=== PATIENT | female | born 1965 | race Caucasian/White ===

== ENCOUNTER 2018-06-13 14:31 | Emergency (ER) | payer OTHER ==
[~2018-06-13] VITALS: Ht 154.9 cm; Wt 88.5 kg
--- NOTE | 2018-06-13 14:31 | NUR ---
Patient MARTINA ALEMAN [place] [facility] [place], triaged at transferred to ED lobby to wait for an available bed.
[2018-06-13 15:09] VITALS: BP 132/76
--- NOTE | 2018-06-13 15:10 | NUR ---
Patient transferred to bed 1. RN evaluating patient at bedside.
--- NOTE | 2018-06-13 15:25 | NUR ---
BIBA FROM SNF FOR CHRONIC RT LOWER LEG PAIN & SWELLING X 1 YEAR. PATIENT STATES PAIN OF 5/10 AT THIS TIME;PATIENT POSITIONED FOR COMFORT; HOB ELEVATED; BEDRAILS UP X2; BED DOWN. ER MD MADE AWARE OF PT STATUS.
[2018-06-13 17:43] LABS: BASOPHILS # (AUTO) 0.1 K/uL (0.00-0.22); BASOPHILS % (AUTO) 0.7 % (0.0-2.0); EOSINOPHILS # (AUTO) 0.3 K/uL (0-0.4); EOSINOPHILS % (AUTO) 3.5 % (0.0-4.0); LYMPHOCYTES % (AUTO) 35.2 % (20.5-51.1); MEAN CORPUSCULAR HEMOGLOBIN 33 pg (27-31); MEAN CORPUSCULAR HGB CONC 34 g/dL (33-37); MONOCYTES # (AUTO) 0.7 K/uL (0.8-1.0); NEUTROPHILS # (AUTO) 4.4 K/uL (1.8-7.7); NEUTROPHILS % (AUTO) 52.6 % (42.2-75.2); PLATELET COUNT (AUTO) 211 K/uL (140-450); RED BLOOD CELL COUNT(AUTO) 4.27 MIL/uL (4.20-5.40); WHITE BLOOD COUNT (AUTO) 8.4 K/uL (4.8-10.8)
[2018-06-13] MEDS ORDERED: fentaNYL 0.05 MG/ML VIAL IM ONE (17:45)
[2018-06-13 17:56] LABS: ANION GAP 10.4 (8-16); CARBON DIOXIDE 31.6 mmol/L (21-32); CREATININE 0.7 mg/dL (0.6-1.3)
[2018-06-13 18:04] LABS: ALBUMIN 3.3 g/dL (3.4-5.0); TOTAL BILIRUBIN 0.3 mg/dL (0.0-1.0)
--- NOTE | 2018-06-13 19:14 | NUR ---
GAVE REPORT TO TIA RN ; [facility].
--- NOTE | 2018-06-13 19:26 | NUR ---
Pt report given to FARNAZ BYRNE. Transfer of care at this time.
--- NOTE | 2018-06-13 19:30 | NUR ---
ASSUMED CARE OF PT AT THIS TIME, PT LAYING IN BED RESTING, NO NEW NEEDS AT THIS TIME, PT AWAITS TRANSPORT TO FACILITY.
--- NOTE | 2018-06-13 20:34 | NUR ---
[facility] AT BEDSIDE
[2018-06-13 20:35] VITALS: BP 132/75
--- NOTE | 2018-06-13 20:38 | NUR ---
[facility] TO WHEELCHAIR TRANSFER PT TO FACILITY, PT AWAKE AND ALERT, FOLLOWS COMMANDS, VSS.
--- NOTE | 2018-06-13 20:40 | NUR ---
PT TAKEN BY [facility] TO [facility] [place] [facility] [place]
== END 2018-06-13 20:40 | disposition home or self-care (01) ==
LOC: MED 14:31
DX: M25.561 Pain in right knee (principal); G89.29 Other chronic pain; J44.9 Chronic obstructive pulmonary disease, unspecified; Z88.0 Allergy status to penicillin; Z88.6 Allergy status to analgesic agent; Z88.5 Allergy status to narcotic agent
CPT/HCPCS: 36415; 73552; 73560; 73590; 80053; 85025; 85379; 93971; 96372; 99284; J3010; Q0092; Q0163